=== PATIENT | female | born 1985 | race Caucasian/White ===

== ENCOUNTER 2016-08-12 12:21 | Emergency (ER) | payer SELFPAY ==
[~2016-08-12] VITALS: Ht 172.7 cm; Wt 117.9 kg
[2016-08-12 12:21] VITALS: BP_SYST 129
--- NOTE | 2016-08-12 12:21 | NUR ---
Pt ambulated to bed 7 to gown for eval.
--- NOTE | 2016-08-12 12:22 | NUR ---
Pt states has had sore throat since Wednesday w/ cough and onset of right ear pain last night. Denies any difficulty breathing, none noted. Dry cough noted. No other complaints/injuries per pt or noted.
--- NOTE | 2016-08-12 12:24 | NUR ---
ER Dr. Lambert at bedside examining patient.
--- NOTE | 2016-08-12 12:40 | NUR ---
Patient given written and verbal discharge instructions and verbalizes understanding. ER MD discussed with patient the results and treatment provided. Patient in stable condition. ID arm band removed. Rx of Ibuprofen and augmentin given. Patient educated on pain management and to follow up with PMD within 2 days. Opportunity for questions provided and answered.
== END 2016-08-12 12:40 | disposition home or self-care (01) ==
LOC: SED 12:21
DX: J06.9 Acute upper respiratory infection, unspecified (principal)
CPT/HCPCS: 99283